=== PATIENT | male | born 1980 | race African-American/Black ===

== ENCOUNTER 2021-01-29 11:45 | Emergency (ER) | payer OTHER | END 2021-01-29 13:18 | disposition home or self-care (01) | LOC: ERS 11:45 | DX: S62.624A Displaced fracture of middle phalanx of right ring finger, initial encounter for closed fracture (principal); F17.210 Nicotine dependence, cigarettes, uncomplicated; Y04.0XXA Assault by unarmed brawl or fight, initial encounter ==